=== PATIENT | male | born 1995 | race Hispanic/Latino ===

== ENCOUNTER 2020-11-22 19:36 | Emergency (ER) | payer OTHER ==
[~2020-11-22] VITALS: Ht 177.8 cm; Wt 83.9 kg
[2020-11-22 19:50] VITALS: BP 134/76
--- NOTE | 2020-11-22 19:50 | NUR ---
ARRIVAL PT ARRIVED AMBULATORY TO ER 7 WITH C/O CONGESTION, HEADACHE, NO TASTE OR SMELL. PT STATES CONGESTION, HEADACHE, FEVER, NO TASTE, NO SMELL FOR A FEW DAYS. STATES NO TASTE AND SMELL STARTED TODAY.
[2020-11-22] MEDS ORDERED: TYLENOL PO STA (20:00)
[2020-11-22] MEDS ORDERED: TYLENOL PO ONE (20:01)
--- NOTE | 2020-11-22 20:02 | NUR ---
LABS COLLECTED AND TAKEN TO LAB AT THIS TIME.
[2020-11-22] MEDS ORDERED: AMOXIL PO STA (20:34)
[2020-11-22] MEDS ORDERED: AMOXIL PO ONE (20:39)
--- NOTE | 2020-11-22 20:41 | ER.PDOC ---
General Chief Complaint: Cough/Congestion Stated Complaint: LOSS OF TASTE/SMELL/HEADACHE/FEVER Time seen by MD: 20:35 Source: patient Exam Limitations: no limitations History of Present Illness Initial Comments Cough, congestion, headache, fever, chills, loss of taste and smell for 2 days. No chest pain or SOB. Timing/Duration: gradual Severity: moderate Associated Symptoms: fever/chills, runny nose, sore throat, cough Allergies: Coded Allergies: No Known Allergies (Unverified , 11/22/20) Constitutional: see HPI EENTM: see HPI Respiratory: see HPI Cardiovascular: no symptoms reported Gastrointestinal: no symptoms reported All Other Systems: Reviewed and Negative Past Medical History Medical History: other Surgical History: no surgical history Family History Significant Family History: no pertinent family hx Social History Alcohol Use: occassionally Drug Use: none Physical Exam General Appearance: alert, no distress Nose: nose nml Throat: airway nml, pharyngeal erythema Neck: nml inspection, supple Respiratory: no resp.distress, breath sounds nml Abdomen: non-tender, no organomegaly CVS: reg rate & rhythm, heart sounds nml Skin: color nml, no rash, warm/dry Extremities: non-tender, nml ROM, no pedal edema NEURO/PSYCH: oriented x 3, CN's nml as tested, motor nml, sensation nml, mood/affect nml Results/Orders Results/Orders Orders - PINO PEREZ MD Strep Screen (11/22/20 19:57) Covid19 Antigen Anh Denise (11/22/20 19:57) Acetaminophen (Tylenol) (11/22/20 20:00) Influenza A&B (11/22/20 20:01) Amoxicillin (Amoxil) (11/22/20 20:34) Vital Signs Date Time Temp Pulse Resp B/P (MAP) Pulse Ox O2 Delivery O2 Flow Rate FiO2 11/22/20 19:50 100.8 115 18 134/76 (95) 98 Room Air 11/22/20 19:50 100.8 115 18 98 11/22/20 19:50 100.8 115 18 Administered Medications Medications (Trade) Dose Ordered Sig/Franko Route PRN Reason Start Time Stop Time Status Last Admin Dose Admin Acetaminophen (Tylenol) 1,000 mg STAT STAT PO 11/22/20 20:00 11/22/20 20:01 UNV 11/22/20 20:01 1,000 MG Laboratory Tests Test 11/22/20 19:58 Influenza Type A Antigen NEGATIVE (NEG) Influenza B Immunofluorescence NEGATIVE (NEG) SARS-CoV-2 Antigen (Rapid) NEGATIVE (NEGATIVE) Group A Streptococcus Screen POSITIVE (NEGATIVE) ER DEPART Departure Time of Disposition: 20:38 Disposition: 01 HOME / SELF CARE / HOMELESS Impression: Primary Impression: Strep pharyngitis Additional Impressions: URI, acute COVID-19 ruled out Condition: Stable Referrals: PCP,UNKNOWN (PCP) PRIMARY CARE PROVIDER Additional Instructions: Amoxil Alternate Tylenol with Motrin every 4 hours as needed for fever 100.4 and above Push fluids Self quarantine at home for 10 days Follow-up with your PCP in 1 week Return to ED if worsening symptoms or concerns Duration or Time Spent with Pa: 20 min Problem Qualifiers PINO PEREZ MD November 22, 2020 20:41
[2020-11-22 21:32] VITALS: BP 122/75
== END 2020-11-22 21:25 | disposition home or self-care (01) ==
LOC: ER 19:36
DX: J02.0 Streptococcal pharyngitis (principal); Z20.822 Contact with and (suspected) exposure to COVID-19
CPT/HCPCS: 87426; 87804 ×2; 87880; 99283; A9150